=== PATIENT | male | born 1960 | race African-American/Black ===

== ENCOUNTER 2021-08-23 23:54 | Emergency (ER) | payer OTHER ==
[~2021-08-23] VITALS: Ht 177.8 cm; Wt 102.1 kg
[~2021-08-23 23:54] MED LIST: NOHOMEMEDICATIONS
[2021-08-24 00:32] LABS: ABSOLUTE NEUTROPHILS 4.2 thou/uL (1.4-8.2); BASOPHILS 0.9 % (0.0-2.0); EOSINOPHILS 5.3 % (0.0-3.0); HEMATOCRIT 32.2 % (42.0-52.0); HEMOGLOBIN 10.6 gm/dL (14.0-18.0); MCH 25.8 pg (26.0-34.0); MCHC 33.1 g/dL (28.0-37.0); MCV 77.8 fL (80.0-100.0); MONOCYTES 10.9 % (1.0-8.0); PLATELET COUNT 288 thou/uL (150-400); POLYS 56.9 % (36.0-66.0); RBC 4.13 mil/uL (4.50-6.00); RDW 16.6 % (10.5-14.5); WBC 7.4 thou/uL (4.0-11.0)
[2021-08-24 00:53] LABS: CALCIUM 9.6 mg/dL (8.5-10.1); CREATININE 7.8 mg/dL (0.7-1.3); POTASSIUM 4.4 mmol/L (3.5-5.1)
[2021-08-24 01:04] LABS: ALBUMIN 3.3 g/dL (3.4-5.0); TOTAL BILIRUBIN 0.5 mg/dL (0.2-1.0); TOTAL PROTEIN 7.4 g/dL (6.4-8.2)
[2021-08-24] MEDS ORDERED: ACETAMINOPHEN325 MG PO (02:37)
[2021-08-24] MEDS ORDERED: NORVASC10 MG PO (02:39)
[2021-08-24] MEDS ORDERED: BIKTARVY 50-201 EACH PO (02:40)
[2021-08-24] MEDS ORDERED: CARVEDILOL12.5 MG PO (02:41)
[2021-08-24] MEDS ORDERED: ERGOCALCIFEROL1 GM PO (02:42)
[2021-08-24] MEDS ORDERED: SLOW FE142 MG PO (02:43)
[2021-08-24] MEDS ORDERED: GABAPENTIN 100100 MG PO (02:44)
[2021-08-24] MEDS ORDERED: LIDOCAINE HC28.35 GM TOP (02:46)
[2021-08-24] MEDS ORDERED: MELATONIN3 M1 PO (02:46)
[2021-08-24] MEDS ORDERED: UREA85 GM TOP (02:47)
[2021-08-24] MEDS ORDERED: VOLTAREN ARTHRI20 GM TOP (02:49)
[2021-08-24] MEDS ORDERED: VIAGRA25 MG PO (02:49)
[2021-08-24 04:41] VITALS: BP 152/89
--- NOTE | 2021-08-24 07:39 | EKG ---
[place] [address] [facility] [place] [address] ELECTROCARDIOGRAM REPORT Name: MARISABEL BEST Room #: [id number] Admission: 08/23/21 Attend Phys: Discharge: 08/24/21 Date of : 64 Report #: [id number] [facility]ly [facility] ED Test Date: 2021-08-24 Test Time: 00:07:59 Pat Name: MARISABEL BEST Department: Room: Gender: M [employer]: : 1960 Requested By: Danilo Anne Order Number: [id number] MD: Claudy Parker Measurements Intervals [place] Rate: 84 P: 72 MS: 157 QRS: 37 QRSD: 90 T: 72 QT: 383 QTc: 453 Interpretive Statements Sinus rhythm Probable left atrial enlargement Compared to ECG 04/15/2013 17:59:10 Sinus tachycardia no longer present T-wave abnormality no longer present Myocardial infarct finding no longer present Electronically Signed On 08-24-2021 7:39:30 DONOR RELATIONS COORDINATOR by Claudy Parker [email or web address] <ELECTRONICALLY SIGNED> By: Claudy Parker MD, [facility] 08/24/21 0739 0007 Claudy Parker MD, FACC /EPI
== END 2021-08-24 03:33 | disposition home or self-care (01) ==
LOC: ER 23:54
PROVIDERS: Emergency Medicine
DX: M54.9 Dorsalgia, unspecified (principal); E11.9 Type 2 diabetes mellitus without complications; E78.00 Pure hypercholesterolemia, unspecified; Z79.899 Other long term (current) drug therapy; Z21 Asymptomatic human immunodeficiency virus [HIV] infection status; Z87.891 Personal history of nicotine dependence; Z88.8 Allergy status to other drugs, medicaments and biological substances